=== PATIENT | female | born 1960 ===

== ENCOUNTER 2017-09-09 02:02 | Observation (INO) | payer MEDICARE, BC ==
[~2017-09-09] VITALS: Ht 170.2 cm; Wt 85.7 kg
[2017-09-09] VITALS (10 sets, daily range): BP systolic 88–124; BP diastolic 45–111
[~2017-09-09 02:02] MED LIST: ALBU2.5V36 INH; ATOR10TA24 PO; CETI10CA PO; CYCL10TA29 PO; DIPH-740 PO; DULO60CA7 PO; FLU44R INH; GABA-503 PO; HYDR8TAB PO; METO-734 PO; ONDA4TAB PO; PANT40TA65 PO; RIZA10TA3 PO
[2017-09-09] MEDS ORDERED: fentaNYL CITR 250 MCG/5 ML AMP ONE ×2 (08:01→09:28)
[2017-09-09] MEDS ORDERED: LIDOCAINE 2% IV 100 MG/5ML SYR ONE (08:02)
[2017-09-09] MEDS ORDERED: PROPOFOL(*)1000 MG/100 ML VIAL 100 ML ONE (08:08)
[2017-09-09] MEDS ORDERED: NORMOSOL R SOLN(*) 1000 ML BAG 1,000 ML IV PRN (09:00)
[2017-09-09] MEDS ORDERED: ceFAZolin(*) 2GM/D5W 50ML 50 ML IVPB ONE (09:00)
[2017-09-09] MEDS ORDERED: LIDOCAINE/SOD BICARB 8.4% SYR ID ONE (09:00)
[2017-09-09] MEDS ORDERED: MIDAZOLAM 2 MG/2 ML VIAL IVP ONE (09:00)
[2017-09-09] MEDS ORDERED: KETAMINE HCL 200 MG/20 ML MDV ONE (09:15)
[2017-09-09] MEDS ORDERED: SUCCINYLCHOL CHL 200MG/10ML VL ONE (09:15)
[2017-09-09] MEDS ORDERED: ONDANSETRON 4 MG/2 ML VIAL ONE ×2 (09:23→12:45)
[2017-09-09] MEDS ORDERED: DEXAMETHASONE SOD PHOS 10MG/ML ONE (09:23)
[2017-09-09] MEDS ORDERED: PROPOFOL EMUL(*) 10MG/ML 20 ML 20 ML ONE ×2 (09:45→11:18)
[2017-09-09] MEDS ORDERED: PROPOFOL EMUL(*) 10MG/ML 20 ML 40 ML ONE ×3 (10:15→10:53)
[2017-09-09] MEDS ORDERED: fentaNYL CITR 100 MCG/2 ML AMP ONE ×2 (11:29→12:32)
[2017-09-09] MEDS ORDERED: PROMETHAZINE 25 MG/ML 1 ML AMP ONE (12:20)
[2017-09-09] MEDS ORDERED: BISACODYL 10 MG SUPP PR PRN (12:25)
[2017-09-09] MEDS ORDERED: diphenhydrAMINE 25 MG CAP PO PRN (12:25)
[2017-09-09] MEDS ORDERED: BENZOCAINE/MENTHOL 1 EACH LOZG PO PRN (12:25)
[2017-09-09] MEDS ORDERED: FLUSH 10 ML SYR IVP PRN (12:25)
[2017-09-09] MEDS ORDERED: APAP/HYDROCODONE 325/5 TAB PO PRN (12:25)
[2017-09-09] MEDS ORDERED: ACETAMINOPHEN(*)1000 MG/100 ML 100 ML IVPB PRN (12:25)
[2017-09-09] MEDS ORDERED: MAGNESIUM HYDROXIDE* 30ML UDCP PO PRN (12:25)
[2017-09-09] MEDS ORDERED: ONDANSETRON 4 MG/2 ML VIAL IVP PRN (12:25)
[2017-09-09] MEDS ORDERED: ACETAMINOPHEN 500 MG TAB PO PRN (12:25)
[2017-09-09] MEDS ORDERED: LR(*) 1000 ML BAG 1,000 ML IV PRN (12:25)
--- NOTE | 2017-09-09 13:29 | RADIOLOGY IMAGING REPORT ---
FACILITY: [facility] PATIENT NAME: Leeann Sutton : 1960 MR: [id number] V: [id number] EXAM DATE: ORDERING PHYSICIAN: GELA HAYWARD TECHNOLOGIST: Location: [facility] - [place] Patient: Leeann Sutton : 1960 Visit/Account:[id number] Date of Sevice: 09/09/2017 Exam type: CERVICAL SPINE 1 VIEW History: C5-C7 DISC HERNIATION Comparison: None. Findings: Two intraoperative cross table lateral views of the cervical spine were submitted. There is an endot eduardo tube in place. On image one there is a metallic probe projecting over the anterior C5-6 leve l. On image two there has been anterior fusion at C5-6 and C6-7 with a metallic screws in support ca ges IMPRESSION: 1. As above Report Dictated By: Raya French MD at 09/09/2017 12:10 PM Report E-Signed By: Raya French MD at 09/09/2017 1:26 PM WSN:[id number]
[2017-09-09] MEDS: oxyCODONE HCL 5 MG CAP PO PRN ×3 (13:36→21:23)
[2017-09-09] MEDS: HYDROmorphone HCL 2 MG/ML SDV IVP PRN ×3 (14:18→19:59)
[2017-09-09] MEDS ORDERED: RIZATRIPTAN BENZOAT (ODT) 10MG PO PRN (14:20)
[2017-09-09] MEDS ORDERED: ALBUTEROL 2.5 MG/3 ML NEB INH PRN (14:20)
--- NOTE | 2017-09-09 14:43 | Hospitalist Consultation ---
History of Present Illness Requesting Physician Dr. Clements Reason for Consult Medication Management Chief Complaint s/p cervical spine fusion History of Present Illness She was admitted s/p cervical spine fusion. There were no reported complications. History Problems: (1) Depression Status: Chronic (2) Asthma Status: Chronic (3) Migraine Status: Chronic (4) Hyperlipidemia Status: Chronic (5) Irritable bowel syndrome Status: Chronic Home Meds Reported Medications Duloxetine HCl (Duloxetine HCl) 60 Mg Capsule.dr, 1 TAB PO QDAY 09/03/17 Atorvastatin Calcium (LIPITOR) 10 Mg Tablet, 1 TAB PO QDAY, TAB 09/03/17 Rizatriptan Benzoate (RIZATRIPTAN) 10 Mg Tab.rapdis, 10 MG PO PRN Y for MIGRAINE 09/03/17 Pantoprazole Sodium (PANTOPRAZOLE SODIUM) 40 Mg Tablet.dr, 40 MG PO BID, TAB.SR 09/03/17 Ondansetron (ZOFRAN ODT) 4 Mg Tab.rapdis, 4 MG PO PRN Y for NAUSEA, TAB.MICKIE 09/03/17 Metoclopramide Hcl (REGLAN) 10 Mg Tablet, 10 MG PO TID 09/03/17 Hydromorphone Hcl (DILAUDID) 8 Mg Tablet, 8 MG PO TID 09/03/17 Gabapentin (GABAPENTIN) 600 Mg Tablet, 900 MG PO TID 09/03/17 Fluticasone Prop 44 Mcg (FLOVENT HFA 44 MCG) 44 Mcg Inha, 110 MCG INH BID, INH 09/03/17 Cetirizine Hcl (ALLERGY RELIEF) 10 Mg Capsule, 10 MG PO QDAY, CAPSULE 09/03/17 Cyclobenzaprine Hcl (CYCLOBENZAPRINE HCL) 10 Mg Tablet, 10 MG PO TID, #9 TAB 09/03/17 Diphenhydramine Hcl (BENADRYL) 25 Mg Capsule, 25 MG PO PRN Y for MIGRAINE, CAPSULE 09/03/17 Albuterol Sulfate 0.083% (ALBUTEROL SULFATE 0.083%) 2.5 Mg/3 Ml Vial.neb, 2.5 MG INH PRN Y for WHEEZING, INH 09/03/17 Allergies: Coded Allergies: kiwi (Verified Allergy, Severe, SHORTNESS OF BREATH, 09/03/17) walnut (Verified Allergy, Severe, SHORTNESS OF BREATH, 09/03/17) animal dander (Verified Allergy, Intermediate, RASH, 09/03/17) Patient History: FH: Parkinson's disease FATHER FH: breast cancer MOTHER BROTHER OR SISTER GRANDMOTHER AUNT FH: non-Hodgkin's lymphoma BROTHER OR SISTER Hx Smoking: Yes (5 CIGS PER DAY) Smoking Status: Current: Every Day Smoker Hx Alcohol Use: Yes Hx Substance Use Disorder: Yes Social Drug Use: Former Social Drugs: Marijuana, Meth, Cocaine When Quit Social Drugs?: AGE 22 History of IV Drug Use: No Review of Systems All Systems Reviewed/Normal: Yes, Except as Noted Musculoskeletal: Pain Exam Vital Signs Vital Signs Date Time Temp Pulse Resp B/P (MAP) Pulse Ox O2 Delivery O2 Flow Rate FiO2 09/09/17 13:40 96 Nasal Cannula 2.0 09/09/17 13:31 98.1 71 12 113/69 (84) General Appearance: Alert, Awake, No Acute Distress, Afebrile Cardiovascular: Regular Rate and Rhythm Respiratory: No Respiratory Distress, Clear to Auscultation Psych: Alert & Oriented X3, Appropriate Mood & Affect Assessment and Plan Problems: (1) S/P cervical spinal fusion Status: Acute Assessment & Plan: She was admitted s/p cervical spine fusion. There were no complications reported from surgery. She is on chronic treatment with gabapentin for neck pain. (2) Hyperlipidemia Status: Chronic Assessment & Plan: She is on chronic management with atorvastatin. (3) Depression Status: Chronic Assessment & Plan: She is on chronic management wtih Duloxetine. (4) Migraine Status: Chronic Assessment & Plan: She is on chronic management with Sumatriptan. (5) Asthma Status: Chronic Assessment & Plan: She is on chronic treatment with albuterol and Flovent inhalers. (6) Irritable bowel syndrome Status: Chronic Assessment & Plan: She is on chronic management with Reglan prior to meals. (7) GERD (gastroesophageal reflux disease) Status: Chronic Assessment & Plan: She is on chronic treatment with Protonix. Venous Thromboembolism Antithrombotics Is Pt On Any Antithrombotics?: No Prophylaxis Tx Contraindicated Pharmacological Contraindicati: Surgical Contraindication Exam Sepsis Risk: No Definite Risk MARZENA JOSEPHP Sep 09, 2017 14:43
[2017-09-09] MEDS ORDERED: FLUT30CR2 TP (14:57)
[2017-09-09] MEDS ORDERED: FLUINH INH ×2 (14:57→14:58)
--- NOTE | 2017-09-09 15:08 | OPERATIVE REPORT 1 ---
EVENT DATE: September 09, 2017 SURGEON: Og Clements MD ANESTHESIOLOGIST: Ephraim Sood MD ANESTHESIA: General endotracheal anesthesia. PATIENT SVCS MGR: Neil Edwards PA-C PREOPERATIVE DIAGNOSES 1. Right C6 and C7 radiculopathy. 2. C5-C6 and C6-C7 cervical degenerative disc disease. POSTOPERATIVE DIAGNOSES 1. Right C6 and C7 radiculopathy. 2. C5-C6 and C6-C7 cervical degenerative disc disease. PROCEDURE PERFORMED C5-C6 and C6-C7 anterior cervical diskectomy. INTRAVENOUS FLUIDS 1800 mL ESTIMATED BLOOD LOSS 50 mL IMPLANTS USED Size small, 7 mm lordotic titanium interbody implants from [employer] times two , 3.5 mm x 14 mm fixation screws times four, also from [employer], and two 1 mL ViBone. SPECIMENS None. DRAINS A 10-Mauritanian round Ronen-Nichols drain through the neck. COMPLICATIONS None. DISPOSITION Post-anesthesia care unit. INDICATIONS FOR SURGERY Ms. Sutton is a 57-year-old female who presented to my clinic with the complaint of neck and radiating right upper extremity pain, numbness, and tingling. The symptoms were present in the C6 and C7 distributions on the right with no symptoms on the left. She denied any fever, chills, nausea, vomiting, or constitutional symptoms. She similarly denied any bowel or bladder dysfunction , gait dysfunction, or fine motor skills issues. Her examination was significant for weakness in the right upper extremity, particularly in the biceps and triceps, and a strongly positive Spurling maneuver to the right that elicited pain in both the C6 and the C7 distributions. X-rays showed disc degeneration at C5-C6 and C6-C7 with reversal of normal cervical lordosis at those two levels, and the MRI showed right greater than left neuroforaminal narrowing secondary to disc bulging and a disc osteophyte complex. Secondary to ongoing symptoms and a failure to improve with nonoperative treatment, Ms. Sutton was offered and elected to undergo a C5-C6 and C6-C7 anterior cervical discectomy and fusion. Prior to surgery, I explained in detail to the patient the possible risks of surgery including bleeding, damage to surrounding structures, voice changes and hoarseness, damage to the superior or recurrent laryngeal nerve, swallowing difficulties and possible need for tube feeding, nerve root injury, spinal cord injury, persistent and/or worsening pain, , blindness, sexual dysfunction, autonomic nervous system dysfunction, sexual dysfunction, and other medical and surgical complications. An understanding that spinal surgery is more predictive in improving extremity discomfort versus axial spine pain was stressed. DESCRIPTION OF PROCEDURE On the date of surgery, the patient was met in the preoperative hold area, and all questions were answered. The operative site was identified and marked by myself, and the patient was then brought in good condition to the operating room. After succumbing to anesthesia, she was positioned in the supine position with her neck slightly extended to afford access to the anterior cervical spine. All bony protuberances and soft tissues were well padded in the standard fashion. Care was taken to maintain appropriate perfusion pressures during anesthesia. Preoperative antibiotics were administered according to the appropriate timing schedule. At the conclusion of the procedure, the sponge and needle counts were correct times two. A final timeout was undertaken to ensure correct patient, correct levels, and correct surgery. An incision was then made over the intended surgical levels in a transverse fashion at the anterior neck. Sharp dissection was taken down to the platysma which was divided. The interval medial to the sternocleidomastoid muscle was identified. The carotid pulse was palpated, and care was taken to perform blunt finger dissection medial to the sternocleidomastoid muscle and the carotid sheath. Space was developed in the retropharyngeal area, and a lateral radiograph was taken to confirm correct spinal levels. Soft tissues, including the longus colli muscles, were elevated subperiosteally off the anterior aspect of the cervical spine overlying the C5- C6 and C6-C7 disc spaces. A self-retaining retractor was placed. The microscope was brought into the field. We began at the C5-C6 level and utilized the high-speed bur to take down the overlying osteophyte over the disc space. The disc was then removed piecemeal using progressively smaller curettes as we approached the posterior aspect of the disc space. At this point, Cloward spreaders were placed to afford better access to the posterior disc space. There was no change in neurophysiologic monitoring. A high-speed bur was used to take down the uncovertebral joints as necessary and to take down the posterior osteophyte of C5. An angled elevator and nerve hook were used to tease our way through the posterior annulus, which was removed using #1 and #2 Kerrison rongeurs. The posterior longitudinal ligament was identified, and we dissected through that carefully again using a nerve hook and forward-angled curette. The posterior longitudinal ligament was taken down using #1 and #2 Kerrison rongeurs. Decompression was carried out particularly in the right foramen ensuring that the nerve hook passed easily out the foramen and over the top of the pedicle of C6. This was done bilaterally. The Cloward manager housekeeping was then removed, and the high-speed bur was used to further prepare the endplates of C5 and C6. A 7 mm, size small trial was then inserted into the disc space and found to have a good fit. The 7 mm lordotic interbody device was chosen and packed with ViBone. It was then tamped into the interbody space and countersunk about 0.5 mm. The awl was then used to penetrate the endplates through the holes in the implant, and 3.5 mm x 14 mm screws were then placed into C5 and C6. Attention was then turned to the C6-C7 level. Discectomy was carried out as for the C5-C6 level. Again, we ultimately chose a 7 mm graft, and after ensuring that a thorough decompression was complete, the 7 mm lordotic interbody spacer was placed. Fixation screws were placed, and fixation strength was excellent. A lateral radiograph confirmed excellent positioning of the implants. There was no change in neurophysiologic monitoring throughout the case, and the final motors were normal. The wound was then irrigated with copious sterile saline solution, and all bleeding was stopped. The wound was closed in layers using interrupted sutures for the platysma, inverted interrupted sutures for the superficial fascia, and then a running subcuticular skin stitch. Sponge and needle counts were correct times two. A 10-Mauritanian round Ronen-Nichols drain was left deep to the platysma. POSTOPERATIVE CARE PLAN The patient will remain in the hospital overnight and will be discharged after having her drain removed in the morning. She will follow up with me in two weeks' time for a wound check and examination. OMID
[2017-09-09] MEDS: ceFAZolin(*) 2GM/D5W 50ML 50 ML IVPB SCH (16:19)
[2017-09-09] MEDS: METOCLOPRAMIDE 10 MG TAB PO SCH ×2 (16:22→20:20)
[2017-09-09] MEDS: FLUTICASONE PROP 110 MCG INH INH SCH (18:18)
[2017-09-09] MEDS: NICOTINE 14 MG/24 HR PATCH TD SCH (18:35)
[2017-09-09] MEDS: GABAPENTIN 300 MG CAP PO SCH (20:20)
[2017-09-09] MEDS: DOCUSATE SODIUM 100 MG CAP PO SCH (20:20)
[2017-09-09] MEDS: PANTOPRAZOLE SOD 40 MG TABEC PO SCH (20:20)
[2017-09-09] MEDS ORDERED: ATORVASTATIN 10 MG TAB PO SCH (21:00)
[2017-09-09] MEDS: DIAZEPAM 5 MG TAB PO PRN (21:23)
[2017-09-10 00:30] VITALS: BP 96/77
[2017-09-10] MEDS: oxyCODONE HCL 5 MG CAP PO PRN ×4 (00:30→10:35)
[2017-09-10] MEDS: ceFAZolin(*) 2GM/D5W 50ML 50 ML IVPB SCH ×2 (00:30→08:09)
[2017-09-10 04:26] VITALS: BP 93/58
[2017-09-10] MEDS: DIAZEPAM 5 MG TAB PO PRN ×2 (04:29→10:35)
[2017-09-10] MEDS: FLUTICASONE PROP 110 MCG INH INH SCH (05:34)
[2017-09-10 07:21] VITALS: BP 119/77
[2017-09-10] MEDS ORDERED: DOCU240C84 PO (07:49)
[2017-09-10] MEDS ORDERED: PER PO (07:49)
--- NOTE | 2017-09-10 07:58 | RADIOLOGY IMAGING REPORT ---
FACILITY: [facility] PATIENT NAME: Leeann Sutton : 1960 MR: [id number] V: [id number] EXAM DATE: ORDERING PHYSICIAN: GELA HAYWARD TECHNOLOGIST: [place] [facility] [place] : 1960 Visit/Account:[id number] Date of Sevice: 09/10/2017 CERVICAL SPINE 2 OR 3 VIEW HISTORY: Postop fusion. COMPARISON: 09/09/2017. TECHNIQUE: AP, lateral, and swimmer's views of the cervical spine. FINDINGS: On the lateral view, C1-C6 are visible. On the swimmer's view, C2 through the upper thoraci c spine are visible, although T1 is partially obscured due to overlying shoulder structures. There are changes of anterior cervical fusion at C5-6 and C6-7, new. Disc heights have been restored at these levels. There is straightening of the normal cervical lordosis that may be positional. Preve rtebral soft tissues are within normal limits. IMPRESSION: 1. Postoperative changes of anterior cervical fusion at C5-6 and C6-7. Report Dictated By: Rohini Navarro at 09/10/2017 7:50 AM Report E-Signed By: Rohini Navarro at 09/10/2017 7:52 AM WSN:[id number]
[2017-09-10] MEDS: PANTOPRAZOLE SOD 40 MG TABEC PO SCH (08:07)
[2017-09-10] MEDS: METOCLOPRAMIDE 10 MG TAB PO SCH (08:07)
[2017-09-10] MEDS: NICOTINE 14 MG/24 HR PATCH TD SCH (08:07)
[2017-09-10] MEDS: GABAPENTIN 300 MG CAP PO SCH (08:07)
[2017-09-10] MEDS: DOCUSATE SODIUM 100 MG CAP PO SCH (08:08)
[2017-09-10] MEDS ORDERED: DULoxetine HCL 30 MG CAPCR PO SCH (09:00)
--- NOTE | 2017-09-10 09:12 | Hospitalist Progress Note ---
Subjective Progress Notes Subjective She has no complaints this morning. She states she is ready to go home. Patient Complains of: Cardiovascular: No: Chest Pain Respiratory: No: Shortness of Breath Physical Exam Vital Signs Date Time Temp Pulse Resp B/P (MAP) Pulse Ox O2 Delivery O2 Flow Rate FiO2 09/10/17 07:21 98.0 76 16 119/77 (91) 94 Room Air 09/10/17 05:33 1.0 General Appearance: Alert, Awake, No Acute Distress, Afebrile Cardiovascular: Regular Rate and Rhythm Respiratory: No Respiratory Distress, Clear to Auscultation Psych: Alert & Oriented X3, Appropriate Mood & Affect Assessment and Plan Problems: (1) S/P cervical spinal fusion Status: Acute Assessment & Plan: She was admitted s/p cervical spine fusion. There were no complications reported from surgery. She is on chronic treatment with gabapentin for neck pain. (2) Hyperlipidemia Status: Chronic Assessment & Plan: She is on chronic management with atorvastatin. (3) Depression Status: Chronic Assessment & Plan: She is on chronic management wtih Duloxetine. (4) Migraine Status: Chronic Assessment & Plan: She is on chronic management with Sumatriptan. (5) Asthma Status: Chronic Assessment & Plan: She is on chronic treatment with albuterol and Flovent inhalers. (6) Irritable bowel syndrome Status: Chronic Assessment & Plan: She is on chronic management with Reglan prior to meals. (7) GERD (gastroesophageal reflux disease) Status: Chronic Assessment & Plan: She is on chronic treatment with Protonix. Exam Sepsis Risk: No Definite Risk MARZENA JOSEPH Sep 10, 2017 09:12
== END 2017-09-10 07:46 | disposition home or self-care (01) ==
LOC: OR 02:02 → MED 13:29
PROVIDERS: ADMIT Orthopaedic Surgery; ATTEND Orthopaedic Surgery
DX: M50.123 Cervical disc disorder at C6-C7 level with radiculopathy (principal)
CPT/HCPCS: 63075; 63076; 72020; 72040; 86850; 86900; 86901; 94640; 97161; A9270; C1713; G0378; J0330; J1100; J1170; J2001; J2250; J2405; J2550; J2704; J3010; J3490; J3535; J8597; L0120; J0690